=== PATIENT | male | born 1995 | race Hispanic/Latino ===

== ENCOUNTER 2017-04-02 19:57 | Emergency (ER) | payer SELFPAY ==
[~2017-04-02] VITALS: Ht 167.6 cm; Wt 112.7 kg
[2017-04-02 20:09] VITALS: BP 137/85; PULSE 98; RESP 18; O2SAT 100
[2017-04-02] MEDS ORDERED: 0.9% Sodium Chloride 1,000 ML IV ONE (21:13)
[2017-04-02] MEDS ORDERED: Ondansetron 2 mg/mL 2 mL Inj IVPUSH PRN (21:15)
[2017-04-02 21:34] LABS: APPEARANCE,URINE HAZY (CLEAR,HAZY); COLOR,URINE YELLOW (YELLOW); OCCULT BLOOD,URINE NEGATIVE (NEGATIVE); PH,URINE 5.5 (5.0-8.0); UROBILINOGEN,URINE NORMAL (NORMAL)
[2017-04-02 21:42] LABS: BASOPHILS % (AUTO) 0.3 % (0-3); EOSINOPHILS % (AUTO) 0.8 % (0-5); MONOCYTES % (AUTO) 9.8 % (4-12); Mean Corpuscular Hemoglobin 28.2 pg (27.0-35.0); Mean Corpuscular Volume 80.6 fL (81-100); NEUTROPHILS % (AUTO) 52.7 % (40-74); Platelet Count 260 bil/L (150-400)
--- NOTE | 2017-04-02 21:54 | ED.REPORT ---
HPI-General Illness Date of Service Apr 02, 2017 ED Provider: Toyn Shannon MD The patient is a 21 year old male with no pertinent medical history who presents to the ED with nausea that began this afternoon. Associated symptoms include vague mild abdominal pain and generalized myalgias. He denies any rash, cough, vomiting, fever or neck stiffness. The patient is expressing concern because his symptoms have been persistent since onset. Patient denies any recent travel. He states he feels tired and generally run down. Nursing Notes Stated Complaint: NAUSEA, FEVER, BODY ACHE Chief Complaint: General Complaint Nursing Notes Reviewed: Yes Allergies: Coded Allergies: No Known Allergies (Unverified , 04/02/17) Scheduled PRN Ondansetron ODT (Zofran ODT) 4 Mg Tablet 4 MG PO Q4H PRN PRN For Nausea General Time Seen by MD: 21:12 Chief Complaint Vomiting Hx Obtained From: Patient Arrived By: Walk-in Sudden in Onset?: No Onset Occurred: 1 - 4 hours ago Symptom Duration: Since onset Quality: Aching (Generalized) Radiation: : Does not radiate Severity: Current: Mild Severity: Maximum: Mild Associated with: Reports: Nausea, Denies: Cough, Fever, Vomiting Pertinent Negative: Pt denies other symptoms Recent Healthcare: No recent doctor visit, No recent hospitalization Past Medical History Past Medical History None reported. Past Surgical History None reported. Smoking History Unknown if Ever Smoker Social History Other Social History: Good social support, Local resident Ambulatory Status Independent Review of Systems Full Review of Systems Constitutional: Denies: Fever Respiratory: Denies: Non-productive cough GI: Reports: Abdominal pain, Nausea, Denies: Vomiting Musculoskeletal: Reports: Myalgia, Denies: Neck pain Skin: Denies Rash Allergy / Immune: Denies: Rhinorrhea Complete sys rev & neg: except as marked. Physical Exam Vital Signs Vital Signs Date Time Temp Pulse Resp B/P Pulse Ox O2 Delivery O2 Flow Rate FiO2 04/02/17 22:58 36.7 92 16 128/82 100 Room Air 04/02/17 20:09 36.6 98 18 137/85 100 Room Air Initial VS: Reviewed Neck: Supple, Non-tender, Full range of motion Extremities: Vascular intact, Neuro intact, No swelling, No tenderness Skin: Warm, Dry, No cyanosis Neurologic: Alert, Oriented, Nonfocal Psychiatric: Mood/affect normal, Behavior normal, Normal thought content General/Constitutional: Awake, Alert, No acute distress, Well appearing, Well developed Head / Eyes: Atraumatic, Normocephalic, PERRL ENT: Atraumatic, Airway patent, Mucous membranes moist, Pharynx NL, Tympanic membs NL, Ext aud canal NL Respiratory / Chest: Atraumatic, Breath sounds NL, Breath sounds = bilat, No respiratory distress Cardiovascular: Heart rate NL, Regular rhythm, Heart sounds NL, No gallop, No murmurs, No rubs Abdomen: Atraumatic, Soft, Non-tender, No distention Interpretation & Diagnostics Lab Results Interpretation Result Diagram: 04/02/17213704/02/17 213 Test 04/02/17 21:21 04/02/17 21:38 Urine Color Yellow (YELLOW) Urine Appearance Hazy (CLEAR,HAZY) Urine pH 5.5 (5.0-8.0) Urine Specific [place] 1.038 (1.003-1.035) Urine Protein Tracemg/dL (NEG,TRACE) Urine Glucose (UA) Negativemg/dL (NEGATIVE) Urine Ketones Negativemg/dL (NEGATIVE) Urine Occult Blood Negative (NEGATIVE) Urine Nitrite Negative (NEGATIVE) Urine Bilirubin Negative (NEGATIVE) Urine Urobilinogen Normalmg/dL (NORMAL) Urine Leukocyte Esterase Negative (NEGATIVE) Urine RBC 0-2/hpf (0-2) Urine WBC 0-5/hpf (0-5) Urine Epithelial Cells Few/hpf (NONE-MOD) Urine Crystals None seen (NONE SEEN) Urine Bacteria Few/hpf (NONE-FEW) Urine Hyaline Casts None/lpf (NONE) Urine Granular Casts None seen (NONE SEEN) Urine Waxy Casts None seen (NONE SEEN) Urine Red Blood Cell Casts None seen (NONE SEEN) Urine White Blood Cell Casts None seen (NONE SEEN) Urine Mucus Present (None Seen) Urine Trichomonas None seen (NONE SEEN) Urine Yeast None (NONE SEEN) Urinalysis Comment None Urine Culture Reflexed Not indicated White Blood Count 10.7th/mm3 (3.8-10.1) Red Blood Count 5.63mil/mm3 (4.40-5.80) Hemoglobin 15.9g/dL (13.8-17.2) Hematocrit 45.4% (41.0-50.0) Mean Corpuscular Volume 80.6fL (81-100) Mean Corpuscular Hemoglobin 28.2pg (27.0-35.0) Mean Corpuscular Hemoglobin Concent 35.0% (32.0-37.0) Red Cell Distribution Width 13.2% (12.3-15.4) Platelet Count 260bil/L (150-400) Neutrophils (%) (Auto) 52.7% (40-74) Lymphocytes (%) (Auto) 36.2% (14-46) Monocytes (%) (Auto) 9.8% (4-12) Eosinophils (%) (Auto) 0.8% (0-5) Basophils (%) (Auto) 0.3% (0-3) Sodium Level 143mEq/L (134-144) Potassium Level 4.2mEq/L (3.5-5.2) Chloride Level 105mEq/L (97-108) Carbon Dioxide Level 23mmol/L (18-29) Blood Urea Nitrogen 16mg/dL (6-20) Creatinine 0.95mg/dL (0.76-1.27) Estimat Glomerular Filtration Rate 105mL/min (>59) Glucose Level 85mg/dL (60-99) Calcium Level 9.9mg/dL (8.5-10.1) Magnesium Level 2.1mg/dL (1.6-2.6) Total Bilirubin 0.4mg/dL (0.0-1.2) Aspartate Amino Transf (AST/SGOT) 35U/L (0-50) Alanine Aminotransferase (ALT/SGPT) 41U/L (0-44) Alkaline Phosphatase 65U/L (25-150) Total Protein 8.2g/dL (6.4-8.4) Albumin 4.6g/dL (3.4-5.0) Lipase 32U/L (13-60) Hold Bliss Top Tube Received (Received) Re-Eval/Medical Decision Med Decision/Clinical Course The patient is a 21 year old male with no pertinent medical history who presents to the ED with nausea that began this afternoon. Associated symptoms include vague mild abdominal pain and generalized myalgias. He denies any rash, cough, vomiting, fever or neck stiffness. The patient is expressing concern because his symptoms have been persistent since onset. Patient denies any recent travel. He states he feels tired and generally run down. Here in the emergency department the patient is afebrile and hemodynamically stable with very reassuring examination including a nontender abdomen. Patient was treated with the below medications and reported dramatic symptomatic improvement. Zofran IV fluids Labs Borderline leukocytosis 10.7 CMP unremarkable Lipase within normal limits Serial abdominal examinations remained benign and I see no evidence at this time acute surgical process such as appendicitis. Patient is well-appearing, tolerating PO and states that he feels better and would like to go home. Overall presentation is most consistent with viral/flulike illness. He is advised to take ibuprofen, orally hydrate and rest. He was prescribed Zofran. Prior to discharge follow-up and return precautions were reviewed in detail with the patient who verbalized understanding and agreement with the plan. The patient was discharged in stable condition. Time of Eval: 22:00 Patient Status: Condition improved Re-Evaluation/Progress Note: The patient's symptoms have improved upon recheck. All questions are addressed. He is informed of his results and diagnosis. The patient understands and agrees with the intended treatment plan. Counseled Regarding: Diagnosis, Lab results, Need for follow-up, When/why to return to ED Discharge & Departure Primary Impression: Viral illness Additional Impressions: Body aches Nausea Fatigue Fatigue type: unspecified Qualified Code: R53.83 - Other fatigue Disposition: Home Discharge Condition All VS Reviewed: Yes Condition: Stable Patient Instructions: Acute Nausea and Vomiting (ED), Viral Syndrome (ED) Additional Instructions: Thank you for seeking care at emergency room. It is difficult for us to make definitive diagnoses in the ED but we believe that you are experiencing a viral illness. Make sure to drink plenty of fluids and get plenty of rest. Our primary goal today in the ED was to evaluate you for any life-threatening conditions. Your evaluation was reassuring. You will be discharged with a prescription for Zofran. Take 1-2 Zofran every 8 hours as needed for nausea. You should follow-up with your primary doctor in the next week. You should return to the ED immediately if you develop high fevers, vomiting, cough, rash, shortness of breath, dizziness or any other concerning signs or symptoms. Thank you for letting us partake in your care today. Referrals: [facility] (PCP) [facility] Scribe Attestation Portions of this note were transcribed by Toi Domínguez. I, Dr. Shannon personally performed the history, physical exam and medical decision-making; I reviewed and confirmed the accuracy of the information in the transcribed note. oTny Shannon MD Apr 02, 2017 21:54 TOI DOMÍNGUEZ Apr 02, 2017 22:01
[2017-04-02 22:04] LABS: Magnesium 2.1 mg/dL (1.6-2.6)
[2017-04-02] MEDS ORDERED: ONDA4TAB9 PO (22:39)
[2017-04-02 22:58] VITALS: BP 128/82; PULSE 92; RESP 16; O2SAT 100
== END 2017-04-02 22:55 | disposition home or self-care (01) ==
LOC: SED 19:57
DX: B34.9 Viral infection, unspecified (principal); R53.83 Other fatigue; R11.0 Nausea; M79.1 Myalgia; R10.9 Unspecified abdominal pain
CPT/HCPCS: 36415; 80053; 81000; 83690; 83735; 85025; 96361; 96374; 99284; J2405; J7030